=== PATIENT | female | born 1945 ===

== ENCOUNTER 2018-09-19 12:51 | Outpatient (CLI) | payer MEDICARE ==
[~2018-09-19] VITALS: Ht 149.9 cm; Wt 50.8 kg
== END 2018-09-19 14:51 | disposition home or self-care (01) ==
LOC: ECT 12:51
DX: F32.2 Major depressive disorder, single episode, severe without psychotic features (principal); E03.9 Hypothyroidism, unspecified; I10 Essential (primary) hypertension; E78.5 Hyperlipidemia, unspecified; M85.80 Other specified disorders of bone density and structure, unspecified site; Z79.82 Long term (current) use of aspirin

== ENCOUNTER 2018-09-21 05:25 | Outpatient (RCR) | payer MEDICARE ==
[~2018-09-21] VITALS: Ht 149.9 cm; Wt 50.8 kg
[2018-09-21] MEDS ORDERED: Succinylcholine 20mg/ml 10ml vial ONE (05:26)
[2018-09-21] MEDS ORDERED: NS 500ML ONE (05:26)
[2018-09-21] MEDS ORDERED: Methohexital Sodium 500mg Vial IVP ONE (05:26)
[2018-09-21 10:15] VITALS: BP 151/90
[2018-09-21 10:55] VITALS: BP 171/80
[2018-09-21 11:00] VITALS: BP 159/68
[2018-09-21 11:05] VITALS: BP 161/63
[2018-09-21 11:10] VITALS: BP 163/50
[2018-09-21 11:58] VITALS: BP 151/90
[2018-09-24] MEDS ORDERED: NS 500ML ONE (06:00)
[2018-09-24] MEDS ORDERED: Succinylcholine 20mg/ml 10ml vial ONE (06:00)
[2018-09-24] MEDS ORDERED: Methohexital Sodium Syr 100mg/10ml IVP ONE (06:00)
[2018-09-24 08:32] VITALS: BP 136/87
[2018-09-24] MEDS ORDERED: Midazolam 2mg/2ml Inj IVP PRN (08:53)
[2018-09-24] MEDS ORDERED: Atropine Sulfate 0.4mg/ml inj IVP PRN (08:53)
[2018-09-24 08:55] VITALS: BP 165/70
[2018-09-24 09:00] VITALS: BP 169/67
[2018-09-24 09:05] VITALS: BP 159/68
[2018-09-24 09:10] VITALS: BP 157/68
[2018-09-26] MEDS ORDERED: Succinylcholine 20mg/ml 10ml vial ONE (07:00)
[2018-09-26] MEDS ORDERED: NS 500ML ONE (07:00)
[2018-09-26] MEDS ORDERED: Methohexital Sodium Syr 100mg/10ml IVP ONE (07:00)
[2018-09-26 08:46] VITALS: BP 129/75
[2018-09-26 09:00] VITALS: BP 183/68
[2018-09-26 09:05] VITALS: BP 182/70
[2018-09-26 09:10] VITALS: BP 171/77
[2018-09-26 09:15] VITALS: BP 153/86
[2018-09-28] MEDS ORDERED: NS 500ML ONE (07:00)
[2018-09-28] MEDS ORDERED: Methohexital Sodium Syr 100mg/10ml IVP ONE (07:00)
[2018-09-28] MEDS ORDERED: Succinylcholine 20mg/ml 10ml vial ONE (07:00)
[2018-09-28 08:54] VITALS: BP 123/72
[2018-09-28] MEDS ORDERED: Atropine Sulfate 0.4mg/ml inj IVP PRN (09:13)
[2018-09-28 09:15] VITALS: BP 167/66
[2018-09-28 09:20] VITALS: BP 148/76
[2018-09-28 09:25] VITALS: BP 138/97
[2018-09-28 09:30] VITALS: BP 137/99
== END 2018-09-30 | disposition home or self-care (01) ==
LOC: ECT 05:25
DX: F33.2 Major depressive disorder, recurrent severe without psychotic features (principal); E03.9 Hypothyroidism, unspecified; M85.80 Other specified disorders of bone density and structure, unspecified site; I10 Essential (primary) hypertension; E78.5 Hyperlipidemia, unspecified
CPT/HCPCS: 90870; J0330; J3490; J7040

== ENCOUNTER 2018-10-01 06:14 | Outpatient (RCR) | payer MEDICARE ==
[~2018-10-01] VITALS: Ht 149.9 cm; Wt 50.8 kg
[2018-10-01] MEDS ORDERED: Succinylcholine 20mg/ml 10ml vial ONE ×2 (06:15)
[2018-10-01] MEDS ORDERED: NS 500ML ONE ×2 (06:15)
[2018-10-01] MEDS ORDERED: Methohexital Sodium Syr 100mg/10ml IVP ONE ×2 (06:15)
[2018-10-01 09:21] VITALS: BP 124/65
[2018-10-01 09:40] VITALS: BP 152/61
[2018-10-01 09:45] VITALS: BP 107/53
[2018-10-01 09:50] VITALS: BP 126/78
[2018-10-01 09:55] VITALS: BP 119/64
[2018-10-03 09:10] VITALS: BP 123/90
[2018-10-03 09:25] VITALS: BP 178/67
[2018-10-03 09:30] VITALS: BP 188/51
[2018-10-03 09:35] VITALS: BP 140/49
[2018-10-03 09:40] VITALS: BP 112/74
[2018-10-05] MEDS ORDERED: Methohexital Sodium Syr 100mg/10ml IVP ONE (08:00)
[2018-10-05] MEDS ORDERED: NS 500ML ONE (08:00)
[2018-10-05] MEDS ORDERED: Succinylcholine 20mg/ml 10ml vial ONE (08:00)
[2018-10-05 08:43] VITALS: BP 118/62
[2018-10-05 08:55] VITALS: BP 186/51
[2018-10-05 09:00] VITALS: BP 147/74
[2018-10-05 09:05] VITALS: BP 150/56
[2018-10-05 09:10] VITALS: BP 157/60
[2018-10-10] MEDS ORDERED: NS 500ML ONE (08:00)
[2018-10-10] MEDS ORDERED: Succinylcholine 20mg/ml 10ml vial ONE (08:00)
[2018-10-10] MEDS ORDERED: Methohexital Sodium Syr 100mg/10ml IVP ONE (08:00)
[2018-10-10 09:41] VITALS: BP 106/65
[2018-10-10 09:55] VITALS: BP 157/75
[2018-10-10 10:00] VITALS: BP 174/89
[2018-10-10 10:05] VITALS: BP 144/60
[2018-10-10 10:10] VITALS: BP 147/72
[2018-10-19] MEDS ORDERED: Succinylcholine 20mg/ml 10ml vial ONE (06:00)
[2018-10-19] MEDS ORDERED: Methohexital Sodium Syr 100mg/10ml IVP ONE (06:00)
[2018-10-19] MEDS ORDERED: NS 500ML ONE (06:00)
[2018-10-19 09:04] VITALS: BP 118/62
[2018-10-19 09:15] VITALS: BP 199/67
[2018-10-19 09:20] VITALS: BP 209/151
[2018-10-19 09:25] VITALS: BP 149/64
[2018-10-19 09:30] VITALS: BP 139/82
== END 2018-10-30 | disposition home or self-care (01) ==
LOC: ECT 06:14
DX: F33.2 Major depressive disorder, recurrent severe without psychotic features (principal)
CPT/HCPCS: 90870; J0330; J7040

== ENCOUNTER 2018-11-02 05:23 | Outpatient (RCR) | payer MEDICARE ==
[~2018-11-02] VITALS: Ht 149.9 cm; Wt 50.8 kg
[2018-11-02] MEDS ORDERED: Methohexital Sodium Syr 100mg/10ml IVP ONE (05:24)
[2018-11-02] MEDS ORDERED: Succinylcholine 20mg/ml 10ml vial ONE (05:24)
[2018-11-02] MEDS ORDERED: NS 500ML ONE (05:24)
[2018-11-02 08:28] VITALS: BP 116/60
[2018-11-02 08:41] VITALS: BP 192/81
[2018-11-02 08:46] VITALS: BP 167/60
[2018-11-02 08:51] VITALS: BP 144/64
[2018-11-02 08:56] VITALS: BP 103/57
[2018-11-23] MEDS ORDERED: Succinylcholine 20mg/ml 10ml vial ONE (07:00)
[2018-11-23] MEDS ORDERED: NS 500ML ONE (07:00)
[2018-11-23] MEDS ORDERED: Methohexital Sodium Syr 100mg/10ml IVP ONE (07:00)
[2018-11-23 08:58] VITALS: BP 131/64
[2018-11-23 09:15] VITALS: BP 143/73
[2018-11-23 09:20] VITALS: BP 147/52
[2018-11-23 09:25] VITALS: BP 133/86
[2018-11-23 09:30] VITALS: BP 137/52
== END 2018-11-30 | disposition home or self-care (01) ==
LOC: ECT 05:23
DX: F33.2 Major depressive disorder, recurrent severe without psychotic features (principal)
CPT/HCPCS: 90870; J0330; J7040

== ENCOUNTER 2018-12-21 04:38 | Outpatient (RCR) | payer MEDICARE ==
[~2018-12-21] VITALS: Ht 149.9 cm; Wt 50.8 kg
[2018-12-21] MEDS ORDERED: Succinylcholine 20mg/ml 10ml vial ONE (04:39)
[2018-12-21] MEDS ORDERED: Methohexital Sodium Syr 100mg/10ml IVP ONE (04:39)
[2018-12-21] MEDS ORDERED: NS 500ML ONE (04:39)
[2018-12-21 09:21] VITALS: BP 128/70
[2018-12-21 09:35] VITALS: BP 202/88
[2018-12-21 09:40] VITALS: BP 170/90
[2018-12-21 09:45] VITALS: BP 163/72
[2018-12-21 09:50] VITALS: BP 151/84
== END 2018-12-30 | disposition home or self-care (01) ==
LOC: ECT 04:38
DX: F33.2 Major depressive disorder, recurrent severe without psychotic features (principal)
CPT/HCPCS: 90870; J0330; J7040

== ENCOUNTER 2019-01-25 08:45 | Outpatient (RCR) | payer MEDICARE ==
[~2019-01-25] VITALS: Ht 30.5 cm; Wt 0.5 kg
[2019-01-25] MEDS ORDERED: Methohexital Sodium 500mg Vial IVP ONE (08:46)
[2019-01-25] MEDS ORDERED: NS 500ML ONE (08:46)
[2019-01-25] MEDS ORDERED: Succinylcholine 20mg/ml 10ml vial ONE (08:46)
[2019-01-25 09:36] VITALS: BP 134/69
[2019-01-25 09:55] VITALS: BP 170/81
[2019-01-25 10:00] VITALS: BP 158/76
[2019-01-25 10:05] VITALS: BP 140/71
[2019-01-25 10:10] VITALS: BP 139/60
== END 2019-01-30 | disposition home or self-care (01) ==
LOC: ECT 08:45
DX: F33.2 Major depressive disorder, recurrent severe without psychotic features (principal)
CPT/HCPCS: 90870; J0330; J3490; J7040

== ENCOUNTER 2019-02-22 06:55 | Outpatient (RCR) | payer MEDICARE ==
[~2019-02-22] VITALS: Ht 149.9 cm; Wt 50.8 kg
[2019-02-22] MEDS ORDERED: NS 500ML ONE (06:56)
[2019-02-22] MEDS ORDERED: Methohexital Sodium Syr 100mg/10ml IVP ONE (06:56)
[2019-02-22] MEDS ORDERED: Succinylcholine 20mg/ml 10ml vial ONE (06:56)
[2019-02-22 08:55] VITALS: BP 119/68
[2019-02-22 09:20] VITALS: BP 154/59
[2019-02-22 09:25] VITALS: BP 141/32
[2019-02-22 09:30] VITALS: BP 117/68
[2019-02-22 09:35] VITALS: BP 123/81
== END 2019-03-02 | disposition home or self-care (01) ==
LOC: ECT 06:55
DX: F33.2 Major depressive disorder, recurrent severe without psychotic features (principal)
CPT/HCPCS: 90870; J0330; J7040

== ENCOUNTER 2019-03-22 04:43 | Outpatient (RCR) | payer MEDICARE ==
[~2019-03-22] VITALS: Ht 149.9 cm; Wt 50.8 kg
[2019-03-22] MEDS ORDERED: NS 500ML ONE (06:00)
[2019-03-22] MEDS ORDERED: Methohexital Sodium Syr 100mg/10ml IVP ONE (06:00)
[2019-03-22] MEDS ORDERED: Succinylcholine 20mg/ml 10ml vial ONE (06:00)
[2019-03-22 08:49] VITALS: BP 134/64
[2019-03-22 09:00] VITALS: BP 193/112
[2019-03-22 09:05] VITALS: BP 168/64
[2019-03-22 09:10] VITALS: BP 132/69
[2019-03-22 09:15] VITALS: BP 114/60
== END 2019-04-01 | disposition home or self-care (01) ==
LOC: ECT 04:43
DX: F33.2 Major depressive disorder, recurrent severe without psychotic features (principal)
CPT/HCPCS: 90870; J0330; J7040

== ENCOUNTER 2019-04-19 04:39 | Outpatient (RCR) | payer MEDICARE ==
[~2019-04-19] VITALS: Ht 30.5 cm; Wt 0.5 kg
[2019-04-19] MEDS ORDERED: Methohexital Sodium Syr 100mg/10ml IVP ONE (04:40)
[2019-04-19] MEDS ORDERED: Succinylcholine 20mg/ml 10ml vial ONE (04:40)
[2019-04-19] MEDS ORDERED: NS 500ML ONE (04:40)
[2019-04-19 08:39] VITALS: BP 163/75
[2019-04-19 08:55] VITALS: BP 148/66
[2019-04-19 09:00] VITALS: BP 148/65
[2019-04-19 09:05] VITALS: BP 153/57
[2019-04-19 09:10] VITALS: BP 136/70
== END 2019-05-02 | disposition home or self-care (01) ==
LOC: ECT 04:39
DX: F33.2 Major depressive disorder, recurrent severe without psychotic features (principal)
CPT/HCPCS: 90870; J0330; J7040

== ENCOUNTER 2019-05-17 04:46 | Outpatient (RCR) | payer MEDICARE ==
[~2019-05-17] VITALS: Ht 30.5 cm; Wt 0.5 kg
[2019-05-17] MEDS ORDERED: Esmolol 100mg/10ml Inj ONE (04:47)
[2019-05-17] MEDS ORDERED: Succinylcholine 20mg/ml 10ml vial ONE (04:47)
[2019-05-17] MEDS ORDERED: NS 500ML ONE (04:47)
[2019-05-17 08:51] VITALS: BP 198/74
[2019-05-17 09:05] VITALS: BP 188/97
[2019-05-17 09:10] VITALS: BP 152/59
[2019-05-17 09:15] VITALS: BP 148/89
[2019-05-17 09:20] VITALS: BP 149/58
== END 2019-06-01 | disposition home or self-care (01) ==
LOC: ECT 04:46
DX: F33.2 Major depressive disorder, recurrent severe without psychotic features (principal)
CPT/HCPCS: 90870; J0330; J7040

== ENCOUNTER 2019-06-14 08:11 | Outpatient (RCR) | payer MEDICARE ==
[~2019-06-14] VITALS: Ht 149.9 cm; Wt 50.8 kg
[2019-06-14] MEDS ORDERED: NS 500ML ONE (08:12)
[2019-06-14] MEDS ORDERED: Succinylcholine 20mg/ml 10ml vial ONE (08:12)
[2019-06-14] MEDS ORDERED: Methohexital Sodium 500mg Vial IVP ONE (08:12)
[2019-06-14 09:07] VITALS: BP 142/75
[2019-06-14 09:20] VITALS: BP 178/70
[2019-06-14 09:25] VITALS: BP 166/72
[2019-06-14 09:30] VITALS: BP 149/65
[2019-06-14 09:35] VITALS: BP 153/46
== END 2019-07-02 | disposition home or self-care (01) ==
LOC: ECT 08:11
DX: F33.2 Major depressive disorder, recurrent severe without psychotic features (principal)
CPT/HCPCS: 90870; J3490

== ENCOUNTER 2019-08-23 09:17 | Outpatient (RCR) | payer MEDICARE ==
[~2019-08-23] VITALS: Ht 149.9 cm; Wt 50.8 kg
[2019-08-23 08:29] VITALS: BP 149/74
[2019-08-23 08:41] VITALS: BP 171/86
[2019-08-23 08:46] VITALS: BP 174/81
[2019-08-23 08:51] VITALS: BP 161/64
[2019-08-23 08:56] VITALS: BP 143/60
[2019-08-23] MEDS ORDERED: Succinylcholine 20mg/ml 10ml vial ONE (09:18)
[2019-08-23] MEDS ORDERED: Methohexital Sodium 500mg Vial IVP ONE (09:18)
[2019-08-23] MEDS ORDERED: NS 500ML ONE (09:18)
== END 2019-08-31 | disposition home or self-care (01) ==
LOC: ECT 09:17
DX: F33.2 Major depressive disorder, recurrent severe without psychotic features (principal)
CPT/HCPCS: 90870; J0330; J3490; J7040

== ENCOUNTER 2019-10-04 05:51 | Outpatient (RCR) | payer MEDICARE ==
[~2019-10-04] VITALS: Ht 149.9 cm; Wt 50.8 kg
[2019-10-04] MEDS ORDERED: NS 500ML ONE (05:52)
[2019-10-04] MEDS ORDERED: Succinylcholine 20mg/ml 10ml vial ONE (05:52)
[2019-10-04] MEDS ORDERED: Methohexital Sodium Syr 100mg/10ml IVP ONE (05:52)
[2019-10-04 08:54] VITALS: BP 146/70
[2019-10-04 09:10] VITALS: BP 155/60
[2019-10-04 09:15] VITALS: BP 148/62
[2019-10-04 09:20] VITALS: BP 152/63
[2019-10-04 09:25] VITALS: BP 150/52
== END 2019-10-31 | disposition home or self-care (01) ==
LOC: ECT 05:51
DX: F33.2 Major depressive disorder, recurrent severe without psychotic features (principal)
CPT/HCPCS: 90870; J0330; J7040

== ENCOUNTER 2019-11-15 07:06 | Outpatient (RCR) | payer MEDICARE ==
[~2019-11-15] VITALS: Ht 149.9 cm; Wt 50.8 kg
[2019-11-15] MEDS ORDERED: NS 500ML ONE (07:07)
[2019-11-15] MEDS ORDERED: Succinylcholine 20mg/ml 10ml vial ONE (07:07)
[2019-11-15] MEDS ORDERED: Methohexital Sodium Syr 100mg/10ml IVP ONE (07:07)
[2019-11-15 08:39] VITALS: BP 140/85
[2019-11-15 08:55] VITALS: BP 148/68
[2019-11-15 09:00] VITALS: BP 148/66
[2019-11-15 09:05] VITALS: BP 150/64
[2019-11-15 09:10] VITALS: BP 146/68
== END 2019-12-01 | disposition home or self-care (01) ==
LOC: ECT 07:06
DX: F33.2 Major depressive disorder, recurrent severe without psychotic features (principal)
CPT/HCPCS: 90870; J0330; J7040

== ENCOUNTER 2020-01-01 05:38 | Outpatient (RCR) | payer MEDICARE ==
[~2020-01-01] VITALS: Ht 149.9 cm; Wt 50.8 kg
[2020-01-01] MEDS ORDERED: Succinylcholine 20mg/ml 10ml vial ONE (05:39)
[2020-01-01] MEDS ORDERED: Methohexital Sodium Syr 100mg/10ml IVP ONE (05:39)
[2020-01-01] MEDS ORDERED: NS 500ML ONE (05:39)
[2020-01-01 08:43] VITALS: BP 162/85
[2020-01-01 08:54] VITALS: BP 178/73
[2020-01-01 08:59] VITALS: BP 163/63
[2020-01-01 09:04] VITALS: BP 147/67
[2020-01-01 09:09] VITALS: BP 153/65
== END 2020-01-31 | disposition home or self-care (01) ==
LOC: ECT 05:38
DX: F33.2 Major depressive disorder, recurrent severe without psychotic features (principal)
CPT/HCPCS: 90870; J0330; J7040

== ENCOUNTER 2020-02-21 04:23 | Outpatient (RCR) | payer MEDICARE ==
[2020-02-21] VITALS (7 sets, daily range): BP systolic 149–181; BP diastolic 61–86
[2020-02-21] MEDS ORDERED: Methohexital Sodium Syr 100mg/10ml IVP ONE (04:24)
[2020-02-21] MEDS ORDERED: Succinylcholine 20mg/ml 10ml vial ONE (04:24)
[2020-02-21] MEDS ORDERED: NS 500ML ONE (04:24)
== END 2020-03-02 | disposition home or self-care (01) ==
LOC: ECT 04:23
DX: F33.2 Major depressive disorder, recurrent severe without psychotic features (principal)
CPT/HCPCS: 90870; J0330; J7040

== ENCOUNTER 2020-04-17 04:43 | Outpatient (RCR) | payer MEDICARE ==
[2020-04-17] VITALS (7 sets, daily range): BP systolic 148–197; BP diastolic 64–79
[~2020-04-17] VITALS: Ht 149.9 cm; Wt 50.8 kg
[2020-04-17] MEDS ORDERED: NS 500ML ONE (04:44)
[2020-04-17] MEDS ORDERED: Methohexital Sodium Syr 100mg/10ml IVP ONE (04:44)
[2020-04-17] MEDS ORDERED: Succinylcholine 20mg/ml 10ml vial ONE (04:44)
== END 2020-05-02 | disposition home or self-care (01) ==
LOC: ECT 04:43
DX: F33.2 Major depressive disorder, recurrent severe without psychotic features (principal)
CPT/HCPCS: 90870; J0330; J7040

== ENCOUNTER 2020-06-12 06:57 | Outpatient (RCR) | payer MEDICARE ==
[2020-06-12] VITALS (7 sets, daily range): BP systolic 142–179; BP diastolic 62–94
[~2020-06-12] VITALS: Ht 30.5 cm; Wt 0.5 kg
[2020-06-12] MEDS ORDERED: Succinylcholine 20mg/ml 10ml vial ONE (06:58)
[2020-06-12] MEDS ORDERED: Methohexita Syr 100mg/10ml IVP ONE (06:58)
[2020-06-12] MEDS ORDERED: NS 500ML ONE (06:58)
== END 2020-07-02 | disposition home or self-care (01) ==
LOC: ECT 06:57
DX: F33.2 Major depressive disorder, recurrent severe without psychotic features (principal)
CPT/HCPCS: 90870; J0330; J7040